=== PATIENT | female | born 1990 | race Two or more races ===

== ENCOUNTER 2020-08-20 15:08 | Emergency (ER) | payer OTHER ==
[2020-08-20 15:21] VITALS: BMI 27.4
[2020-08-20 19:00] LABS: EPI CELLS >36 /uL (0-25.1); HYALINE CASTS 2 /uL (0-3.1); PH,URINE 6.5 (5.0-8.0); URINE APPEARANCE CLOUDY; URINE BACTERIA 655 /uL (0-1359); URINE BILIRUBIN NEGATIVE (NEGATIVE); URINE COLOR YELLOW; URINE GLUCOSE (UA) NEGATIVE (NEGATIVE); URINE KETONE TRACE (NEGATIVE); URINE LEUK ESTERASE NEGATIVE (NEGATIVE); URINE NITRITE NEGATIVE (NEGATIVE); URINE PROTEIN NEGATIVE (NEGATIVE); URINE RBC 7 /uL (0-23.9); URINE WBC 14 /uL (0-25.8)
[2020-08-20 19:47] VITALS: BP 107/65; PULSE 83; TEMP 98.1
== END 2020-08-20 19:47 | disposition home or self-care (01) ==
LOC: JER 15:08
DX: O20.0 Threatened abortion (principal); O41.8X10 Other specified disorders of amniotic fluid and membranes, first trimester, not applicable or unspecified
CPT/HCPCS: 36415; 76801-TC; 81003; 84702; 86850; 86900; 86901; 87086; 99284-25

== ENCOUNTER 2021-12-02 14:40 | Emergency (ER) | payer SELFPAY ==
[2021-12-02 15:03] VITALS: BP 116/70; PULSE 100; RESP 20; TEMP 98.1; BMI 31.1
[2021-12-02] MEDS ORDERED: BACITRACIN 15 GM TUBE TOPICAL OINTMENT ONE (16:29)
== END 2021-12-02 16:34 | disposition home or self-care (01) ==
LOC: JER 14:40
DX: L08.9 Local infection of the skin and subcutaneous tissue, unspecified (principal); R51.9 Headache, unspecified; Z48.02 Encounter for removal of sutures
CPT/HCPCS: 99283-25

== ENCOUNTER 2021-12-30 12:41 | Emergency (ER) | payer SELFPAY ==
[2021-12-30 12:47] VITALS: BP 107/62; PULSE 103; RESP 18; TEMP 98.9; BMI 31.2
== END 2021-12-30 13:24 | disposition home or self-care (01) ==
LOC: JERFT 12:41
DX: S00.93XA Contusion of unspecified part of head, initial encounter (principal)
CPT/HCPCS: 99283-25

== ENCOUNTER 2022-01-14 11:46 | Emergency (ER) | payer SELFPAY ==
[2022-01-14 12:18] VITALS: BP 103/63; PULSE 89; RESP 17; TEMP 98.1; BMI 29.9
[2022-01-14 14:50] LABS: BASO % 0.2 % (0-2.0); HEMATOCRIT 32.1 % (32.4-45.2); HEMOGLOBIN 10.3 GM/dL (10.7-15.3); LYMPH % 13.5 % (8-40); MCH 25.3 pg (25.7-33.7); MCHC 32.2 g/dl (32.0-36.0); MEAN CELL VOLUME 78.4 fl (80-96); MEAN PLT VOLUME 9.4 fl (7.5-11.1); MONO % 7.1 % (3.8-10.2); NEUT % 78.2 % (42.8-82.8); PLATELET COUNT 255 10^3/uL (134-434); RBC 4.09 M/mm3 (3.60-5.2); RDW 17.4 % (11.6-15.6); WHITE BLOOD COUNT 10.7 K/mm3 (4.0-10.0)
[2022-01-14 15:28] LABS: BLOOD UREA NITROGEN 7.4 mg/dL (7-18); CALCIUM 8.4 mg/dL (8.5-10.1); CREATININE 0.6 mg/dL (0.55-1.3)
== END 2022-01-14 16:29 | disposition home or self-care (01) ==
LOC: JERFT 11:46
CPT/HCPCS: 36415; 80048; 84703; 85025; 87070; 87186; 87205; 99284-25